=== PATIENT | male | born 1950 | race Caucasian/White ===

== ENCOUNTER 2023-11-28 07:07 | Day surgery (SDC) | payer OTHER, SELFPAY ==
[2023-11-06 07:53] VITALS: BMI 28.1
--- NOTE | 2023-11-06 08:20 | HPS.HSE ---
Family Physician
-
Family Physician: NOT KNOW UNKNOWN - PT DOES
Chief Complaint
-
Permanent atrial fibrillation.
History of Present Illness
The patient is a 72-year-old male presenting today for permanent atrial fibrillation. He is on current pharmacological therapy with Carvedilol. He is compliant with taking Eliquis for oral anticoagulation. He would ultimately undergo an
uncomplicated Watchman implantation with Dr. Bruno Decker in late May 2023 due to an elevated HAS-BLED score. Of note, he previously experienced a subdural hematoma from a mechanical fall in 2013 for which he required an urgent craniotomy.
His 45 day post-Watchman transesophageal echocardiogram in July 2023 demonstrated a well seated device without thrombus and a <3 mm leak, best seen at 90 -135 degrees. He is now 6 months post-Watchman implantation and will require a
transesophageal echocardiogram before discontinuing oral anticoagulation altogether. He denies any current complaints today such as chest pain, shortness of breath, nausea, vomiting, diarrhea, lightheadedness, dizziness, cough, sore throat, or fever.
Medical History
Past Medical History
Past Medical History: Reports Other
Additional Past Medical History:
1. Permanent atrial fibrillation, status post Watchman implantation 05/2023; pharmacological therapy with Carvedilol and oral anticoagulation with Eliquis.
2. Hypertension.
3. Right bundle branch block.
4. Sinus bradycardia, asymptomatic.
5. PVCs, status post ablation 11/2017.
6. Nonischemic cardiomyopathy, mildly reduced ejection fraction.
7. Moderate tricuspid regurgitation.
8. Obstructive sleep apnea, compliant with CPAP.
9. Mild bronchitis and mild hepatic cirrhosis on chest CT 10/2022.
10.�GERD.
11. Remote rectal bleeding.
12. Subdural hematoma after mechanical fall, 04/2014, status post craniotomy with hematoma evacuation and subsequent cranioplasty with left bone flap reimplantation 06/2014.
13. Chronic low back pain.
14. Squamous cell carcinoma, status post multiple excisions.
15. Gout.
16. Prediabetes.
17. Gynecomastia.
18. Remote history of tobacco abuse.
Past Surgical History: Reports Other
Additional Past Surgical History:
1. Watchman implantation.
2. Transesophageal echocardiogram.
3. PVC ablation.
4. Craniotomy and evacuation of subdural hematoma.
5. Cranioplasty and left bone flap reimplantation.
6. Laparoscopic appendectomy and umbilical hernia repair.
7. Bilateral cataract extraction.
8. Dental implantation.
Social History
Tobacco: Former Smoker (1 pack per day cigarette smoker who quit tobacco prodcuts in 1978.)
Alcohol: Occasional
Personal:
Living: Other (He lives in a 2 story home with his . )
Family History
Family History: Not pertinent
Allergies / Home Medications
Allergy/Medication List:
Home medications:
1. Allopurinol 300 mg p.o. every evening.
2. Amlodipine 10 mg p.o. daily.
3. Aspirin 81 mg p.o. every evening.
4. Carvedilol 6.25 mg p.o. twice a day.
5. Furosemide 40 mg p.o. daily.
6. Furosemide 20 mg p.o. Sundays, Tuesdays, and .
7. Multivitamin one tablet p.o. daily.
8. Ramipril 10 mg p.o. daily.
9. Spironolactone 25 mg p.o. daily.
10. Eliquis 2.5 mg p.o. twice a day.
Allergies: No known allergies.
Review of Systems
-
A 12 point ROS was completed and negative except as noted: Yes
Physical Exam
Vital Signs
Blood pressure 126/63. Heart rate 43. Respirations 18. Pulse ox 100% on room air.
Height 5 feet, 9.5 inches. Weight 87.5 kg. BMI 28.1.
Physical Exam
General: Well Developed, Well Nourished and No Apparent Distress
HEENT: NormoCephalic, Moist mucous membranes, Atraumatic and PERRLA
Respiratory: Clear
Cardiac: Irregular Rhythm
GI: Soft, Non Tender and Non Distended
Musculoskeletal: Normal Gait & Station
Skin: Warm and Dry
Neuro: AO x 3 and Nonfocal/grossly intact
Laboratory Results
-
EKG 11/06/2023: Idioventricular vs junctional rhythm with underlying atrial fibrillation.
Transesophageal echocardiogram 07/25/2023: Mildly reduced left ventricular systolic function. Left ventricular ejection fraction is 45%. Severely dilated atria.�31 mm Watchman FLX device in place. It is well seated without thrombus. There is a <3 mm
leak (best seen at 90 -135 degrees). Moderate tricuspid regurgitation. Compared to the previous study there is no significant change.
Impression/Plan
-
IMPRESSION/PLAN:
1. Permanent atrial fibrillation: The patient is in need of transesophageal echocardiogram 6 months post-Watchman implantation. This is scheduled to occur on 11/28/[address] Bridger Marshall. The benefits and the risks of the procedure have been
explained to the patient. The patient understands these risks and wishes to proceed.
== END 2023-11-28 09:36 | disposition home or self-care (01) ==
LOC: CATH 07:07
PROVIDERS: ATTENDING PHYSICIAN Internal Medicine Cardiovascular Disease
DX: I48.21 Permanent atrial fibrillation (principal); Z79.01 Long term (current) use of anticoagulants; I10 Essential (primary) hypertension; I45.10 Unspecified right bundle-branch block; I42.8 Other cardiomyopathies; G47.33 Obstructive sleep apnea (adult) (pediatric); K74.60 Unspecified cirrhosis of liver; Z86.73 Personal history of transient ischemic attack (TIA), and cerebral infarction without residual deficits; G89.29 Other chronic pain; M54.50 Low back pain, unspecified; Z87.2 Personal history of diseases of the skin and subcutaneous tissue; R73.03 Prediabetes; M10.9 Gout, unspecified; N62 Hypertrophy of breast; Z87.891 Personal history of nicotine dependence; Z79.82 Long term (current) use of aspirin; I08.3 Combined rheumatic disorders of mitral, aortic and tricuspid valves
CPT/HCPCS: 93312; 93320; 93325; 93005